=== PATIENT | female | born 1975 | race Caucasian/White ===

== ENCOUNTER 2017-01-13 13:19 | Emergency (ER) | payer OTHER ==
[2017-01-13 13:41] VITALS: BP 133/80; PULSE 78; TEMP 97.3; BMI 27.3
--- NOTE | 2017-01-13 15:31 | PDOC ---
History of Present Illness - General Chief Complaint: Pain, Acute Stated Complaint: ABD PAIN Time Seen by Provider: 01/13/17 14:45 History Source: Patient Exam Limitations: No Limitations - History of Present Illness Travel History: No Initial Comments: 01/13/17 15:28 41-year-old female who past medical history presents the ED with complaints of left suprapubic pain that began this morning. Patient states started her menses yesterday which was on schedule. Patient states no medical history including endometriosis, fibroids, ovarian cyst but states did have IVF 2 last year that were unsuccessful. Timing/Duration: reports: constant Quality: reports: moderate, cramping Abdominal Pain Onset Location: reports: suprapubic Pain Radiation: reports: no radiation Activities at Onset: reports: none Aggravating Factors: improves with: None Alleviating Factors: improves with: None Past History - Past Medical History Allergies/Adverse Reactions: Allergies Allergy/AdvReac Type Severity Reaction Status Date / Time No Known Allergies Allergy Verified 01/13/17 13:37 Home Medications: Ambulatory Orders NK [No Known Home Medication] 01/13/17 Other medical history: DENIES. - Surgical History Appendectomy: Yes - Psycho/Social/Smoking Cessation Hx Suicidal Ideation: No Smoking History: Never smoked Patient Lives Alone: No Lives with/in: spouse/SO Review of Systems - Review of Systems Able to Perform ROS?: Yes Constitutional: No: Symptoms Reported HEENTM: No: Symptoms Reported Respiratory: No: Symptoms reported Cardiac (ROS): No: Symptoms Reported ABD/GI: Yes: Abdominal cramping : Yes: Discharge (vaginal bleeding) Integumentary: No: Symptoms Reported Neurological: No: Symptoms reported *Physical Exam - Vital Signs Last Vital Signs Temp Pulse Resp BP Pulse Ox 97.3 F L 78 19 133/80 97 01/13/17 13:37 01/13/17 13:37 01/13/17 13:37 01/13/17 13:37 01/13/17 13:37 - Physical Exam General Appearance: Yes: Nourished, Appropriately Dressed. No: Apparent Distress HEENT: negative: Pale Conjunctivae Neck: positive: Normal Thyroid, Supple Respiratory/Chest: positive: Lungs Clear, Normal Breath Sounds. negative: Respiratory Distress, Accessory Muscle Use Cardiovascular: positive: Regular Rhythm, Regular Rate. negative: Murmur Female Pelvic Exam: positive: cervical os closed, adnexal tenderness (mild left) , vaginal bleeding (dark red no clots) Gastrointestinal/Abdominal: positive: Soft, Tenderness (left suprapubc) Extremity: positive: Normal Capillary Refill Integumentary: positive: Normal Color, Warm, Moist Neurologic: positive: Motor Strength 5/5 (ambulatory) ED Treatment Course - LABORATORY CBC & Chemistry Diagram: 01/13/17 15:07 01/13/17 15:07 Medical Decision Making - Medical Decision Making 01/13/17 14:31 Complaining of left suprapubic pain since menstruation started yesterday. Patient on exam had adnexal and suprapubic tenderness to the left eye. Patient presented torsion versus tubal versus fibroid. Patient ordered for labs, urine and urine and offered pain meds but is refusing presently. Patient with ultrasound once status is reviewed. 01/13/17 18:03 Laboratory Tests 01/13/17 01/13/17 01/13/17 15:00 15:07 15:07 WBC 8.0 Hgb 14.2 Hct 42.8 Neutrophils % 68.4 Sodium 141 Potassium 4.1 Chloride 107 Carbon Dioxide 26 Anion Gap 8 BUN 9 Creatinine 0.5 L Calcium 9.3 Total Bilirubin 1.5 H AST 10 L ALT 14 Albumin 4.2 Urine Protein 1+ H Urine Ketones Trace H Urine Blood 3+ H Ur Leukocyte Esterase 1+ H Urine WBC 64 Patient currently menstruating and awaiting results from ultrasound. patient states pain has resolved without medical intervention *DC/Admit/Observation/Transfer Diagnosis at time of Disposition: Abdominal pain - Discharge Dispostion Disposition: HOME Condition at time of disposition: Stable - Referrals Referrals: Ivanna Birmingham MD [Staff Physician] - Phil Sam MD [Primary Care Provider] - - Patient Instructions Additional Instructions: Follow up with the search engine optimization consultant this week Return to the Er for severe/persistent or worsening symptoms
[2017-01-13 15:33] LABS: URINE APPEARANCE SLCLOUDY; URINE BILIRUBIN NEGATIVE (NEGATIVE); URINE COLOR RED; URINE GLUCOSE (UA) NEGATIVE (NEGATIVE); URINE KETONE TRACE (NEGATIVE); URINE NITRITE NEGATIVE (NEGATIVE); URINE UROBILINOGEN NEGATIVE E.U./dl (0.2-1.0)
[2017-01-13 15:39] LABS: URINE BLOOD 3+ (NEGATIVE); URINE LEUK ESTERASE 1+ (NEGATIVE); URINE PROTEIN 1+ (NEGATIVE)
[2017-01-13 15:44] LABS: BASOPHIL 0.5 % (0-2.0); EOSINOPHIL 0.3 % (0-4.5); MCH 27.8 pg (25.7-33.7); MCHC 33.3 g/dl (32.0-36.0); MEAN CELL VOLUME 83.4 fl (80-96); MEAN PLT VOLUME 9.8 fl (7.5-11.1); NEUTROPHILS 68.4 % (42.8-82.8); PLATELET COUNT 228 K/MM3 (134-434); RDW 13.7 % (11.6-15.6)
[2017-01-13 16:07] LABS: ALBUMIN 4.2 g/dl (3.4-5.0); ALK PHOS 80 U/L (45-117); ANION GAP 8 (8-16); BILIRUBIN,TOTAL 1.5 mg/dL (0.2-1.0); CALCIUM 9.3 mg/dL (8.5-10.1); CO2 26 mmol/L (21-32); CREATININE 0.5 mg/dL (0.55-1.02); GLUCOSE,RANDOM 94 mg/dL (74-106); SGOT/AST 10 U/L (15-37); SGPT/ALT 14 U/L (12-78); TOT PROT 7.4 g/dl (6.4-8.2)
[2017-01-13 17:08] LABS: URINE RBC 628 /hpf (0-3); URINE WBC 64 /hpf (3-5)
--- NOTE | 2017-01-13 21:37 | PDOC ---
History of Present Illness - General Chief Complaint: Pain, Acute Stated Complaint: ABD PAIN Time Seen by Provider: 01/13/17 14:45 Past History - Past Medical History Allergies/Adverse Reactions: Allergies Allergy/AdvReac Type Severity Reaction Status Date / Time No Known Allergies Allergy Verified 01/13/17 13:37 Home Medications: Ambulatory Orders NK [No Known Home Medication] 01/13/17 Other medical history: DENIES. - Surgical History Appendectomy: Yes - Psycho/Social/Smoking Cessation Hx Suicidal Ideation: No Smoking History: Never smoked Patient Lives Alone: No Lives with/in: spouse/SO *Physical Exam - Vital Signs Last Vital Signs Temp Pulse Resp BP Pulse Ox 97.3 F L 78 19 133/80 97 01/13/17 13:37 01/13/17 13:37 01/13/17 13:37 01/13/17 13:37 01/13/17 13:37 ED Treatment Course - LABORATORY CBC & Chemistry Diagram: 01/13/17 15:07 01/13/17 15:07 - ADDITIONAL ORDERS Additional order review: Laboratory Results 01/13/17 01/13/17 15:07 15:00 Sodium 141 Potassium 4.1 Chloride 107 Carbon Dioxide 26 Anion Gap 8 BUN 9 Creatinine 0.5 L Creat Clearance w eGFR > 60 Random Glucose 94 Calcium 9.3 Total Bilirubin 1.5 H AST 10 L ALT 14 Alkaline Phosphatase 80 Total Protein 7.4 Albumin 4.2 Urine Color Red Urine Appearance Slcloudy Urine pH 6.0 Ur Specific Jewell 1.013 Urine Protein 1+ H Urine Glucose (UA) Negative Urine Ketones Trace H Urine Blood 3+ H Urine Nitrite Negative Urine Bilirubin Negative Urine Urobilinogen Negative Ur Leukocyte Esterase 1+ H Urine RBC 628 Urine WBC 64 Ur Epithelial Cells Rare Urine HCG, Qual Negative 01/13/17 15:07 RBC 5.13 MCV 83.4 MCHC 33.3 RDW 13.7 MPV 9.8 Neutrophils % 68.4 Lymphocytes % 25.5 Monocytes % 5.3 Eosinophils % 0.3 Basophils % 0.5 *DC/Admit/Observation/Transfer Diagnosis at time of Disposition: Abdominal pain Qualifiers: Abdominal location: lower abdomen, unspecified Qualified Code(s): R10.30 - Lower abdominal pain, unspecified - Discharge Dispostion Disposition: HOME Condition at time of disposition: Stable - Referrals Referrals: Phil Sam MD [Primary Care Provider] - Ivanna Birmingham MD [Staff Physician] - - Patient Instructions Additional Instructions: Follow up with the psychiatric rn this week Return to the Er for severe/persistent or worsening symptoms
== END 2017-01-13 21:41 | disposition home or self-care (01) ==
LOC: JER 13:19
DX: R10.30 Lower abdominal pain, unspecified (principal)
CPT/HCPCS: 36415; 76830-TC; 76856-TC; 80053; 81003; 81015; 84703; 85025; 87086; 99282-25